=== PATIENT | female | born 1985 | race Caucasian/White ===

== ENCOUNTER 2016-10-24 17:02 | Emergency (ER) | payer MEDICAID ==
[~2016-10-24] VITALS: Ht 162.6 cm; Wt 76.0 kg
[~2016-10-24 17:02] MED LIST: ALBU8.5H3 INH; FLUO20CA19 PO; HYDR50TA13 PO; METF500T4 PO; OXCA300T PO; OXCA300T3 PO; PARO20TA55 PO; QUET200T4 PO; TRAZ50TA18 PO
[2016-10-24 17:13] VITALS: BP 129/73
== END 2016-10-24 18:26 | disposition home or self-care (01) ==
LOC: ED 18:10
DX: S83.412A Sprain of medial collateral ligament of left knee, initial encounter (principal); S83.422A Sprain of lateral collateral ligament of left knee, initial encounter; E11.9 Type 2 diabetes mellitus without complications; X58.XXXA Exposure to other specified factors, initial encounter; Y93.89 Activity, other specified; Y92.89 Other specified places as the place of occurrence of the external cause; Y99.9 Unspecified external cause status
CPT/HCPCS: 99284

== ENCOUNTER 2016-12-14 19:50 | Emergency (ER) | payer MEDICAID ==
[~2016-12-14] VITALS: Ht 162.6 cm; Wt 76.0 kg
[2016-12-14] MEDS ORDERED: QUET100T4 PO (20:31)
[2016-12-14 21:10] VITALS: BP 106/81
== END 2016-12-14 21:12 | disposition home or self-care (01) ==
LOC: ED 20:38
DX: S63.641A Sprain of metacarpophalangeal joint of right thumb, initial encounter (principal); Z88.8 Allergy status to other drugs, medicaments and biological substances; X50.9XXA Other and unspecified overexertion or strenuous movements or postures, initial encounter; Y93.89 Activity, other specified; Y92.328 Other athletic field as the place of occurrence of the external cause; Y99.8 Other external cause status
CPT/HCPCS: 99284

== ENCOUNTER 2016-12-24 14:54 | Emergency (ER) | payer MEDICAID ==
[~2016-12-24] VITALS: Ht 160 cm; Wt 76.8 kg
[~2016-12-24 14:54] MED LIST changes: +QUET100T4 PO
[2016-12-24 14:56] VITALS: BP 114/77
== END 2016-12-24 16:22 | disposition home or self-care (01) ==
LOC: ED 16:16
DX: S63.641A Sprain of metacarpophalangeal joint of right thumb, initial encounter (principal); E11.9 Type 2 diabetes mellitus without complications; J45.909 Unspecified asthma, uncomplicated; F90.9 Attention-deficit hyperactivity disorder, unspecified type; X50.1XXA Overexertion from prolonged static or awkward postures, initial encounter; Y93.89 Activity, other specified; Y92.328 Other athletic field as the place of occurrence of the external cause; Y99.8 Other external cause status
CPT/HCPCS: 29125

== ENCOUNTER 2017-01-09 13:29 | Emergency (ER) | payer MEDICAID ==
[~2017-01-09] VITALS: Ht 160 cm; Wt 77.3 kg
[~2017-01-09 13:29] MED LIST changes: -ALBU8.5H3 INH; +ALBU8.5H8 INH; -PARO20TA55 PO; +PARO20TA98 PO
[2017-01-09 13:36] VITALS: BP 100/68
[2017-01-09] MEDS ORDERED: METHOCARBAMOL 750 MG TABLET PO ONE (14:00)
[2017-01-09] MEDS ORDERED: KETOROLAC 30 MG/1 ML IM ONE (14:00)
[2017-01-09] MEDS ORDERED: KETOROLAC 30 MG/1 ML ONE (14:05)
[2017-01-09] MEDS ORDERED: METHOCARBAMOL 750 MG TABLET ONE (14:05)
== END 2017-01-09 15:00 | disposition home or self-care (01) ==
LOC: ED 14:40
DX: S46.912A Strain of unspecified muscle, fascia and tendon at shoulder and upper arm level, left arm, initial encounter (principal); E11.9 Type 2 diabetes mellitus without complications; J45.909 Unspecified asthma, uncomplicated; F90.9 Attention-deficit hyperactivity disorder, unspecified type; V29.9XXA Motorcycle rider (driver) (passenger) injured in unspecified traffic accident, initial encounter; Y93.89 Activity, other specified; Y92.89 Other specified places as the place of occurrence of the external cause; Y99.8 Other external cause status
CPT/HCPCS: 72050; 73030; 96372; 99284; J1885

== ENCOUNTER → 2017-01-11 | Outpatient (CLI) | payer MEDICAID ==
[~2017-01-11] MED LIST changes: +GADOBUTROL 10 MMOL/10 ML VIAL ONE
== END | disposition home or self-care (01) ==
LOC: CFH 07:38
PROVIDERS: ATTEND Specialist
DX: E23.7 Disorder of pituitary gland, unspecified (principal); J32.1 Chronic frontal sinusitis; E22.1 Hyperprolactinemia
CPT/HCPCS: 70553; A9585

== ENCOUNTER → 2017-03-05 | Outpatient (CLI) | payer MEDICAID | END | disposition home or self-care (01) | LOC: CFH 12:42 | PROVIDERS: ATTEND Nurse Practitioner Family | DX: D35.2 Benign neoplasm of pituitary gland (principal); E22.1 Hyperprolactinemia | CPT/HCPCS: 70553; A9585 ==

== ENCOUNTER 2017-05-23 22:34 | Emergency (ER) | payer MEDICAID ==
[~2017-05-23] VITALS: Ht 162.6 cm; Wt 84.0 kg
[~2017-05-23 22:34] MED LIST changes: -GADOBUTROL 10 MMOL/10 ML VIAL ONE
[2017-05-23 22:47] VITALS: BP 111/79
== END 2017-05-24 01:11 | disposition home or self-care (01) ==
LOC: ED 05-24 00:23
DX: K60.0 Acute anal fissure (principal); E11.9 Type 2 diabetes mellitus without complications; J45.909 Unspecified asthma, uncomplicated
CPT/HCPCS: 74021; 99284

== ENCOUNTER 2017-05-27 15:07 | Emergency (ER) | payer MEDICAID ==
[~2017-05-27] VITALS: Ht 162.6 cm; Wt 84.0 kg
[2017-05-27 15:10] VITALS: BP 113/78
[2017-05-27 15:38] LABS: BASOPHILS % (AUTO) 0 % (0-1); EOSINOPHILS # (AUTO) 0.03 x10^3/uL (0-0.4); EOSINOPHILS % (AUTO) 0 % (1-7); LYMPHOCYTES # (AUTO) 1.39 x10^3/uL (1-3.4); LYMPHOCYTES % (AUTO) 11 % (22-44); MD NO; MEAN CORPUSCULAR HEMOGLOBIN 29.8 pg (27.0-34.8); MEAN CORPUSCULAR HGB CONC 33.2 g/dL (32.4-35.8); MEAN CORPUSCULAR VOLUME 89.6 fL (80-100); MEAN PLATELET VOLUME 8.4 fL (7.4-10.4); MONOCYTES # (AUTO) 0.38 x10^3/uL (0.2-0.8); MONOCYTES % (AUTO) 3 % (2-9); NEUTROPHILS # (AUTO) 10.41 x10^3/uL (1.8-6.8); NEUTROPHILS % (AUTO) 85 % (42-75); PLATELET COUNT 401 x10^3/uL (130-400); RED CELL DISTRIBUTION WIDTH 13.9 % (9.6-15.2)
[2017-05-27 15:45] LABS: ALBUMIN 3.8 g/dL (3.4-5.0); ANION GAP 6 mmol/L (5-15); CALCIUM 8.8 mg/dL (8.5-10.1); CHLORIDE 103 mmol/L (98-107)
[2017-05-27 15:46] LABS: SALICYLATE LEVEL < 1.7 mg/dL (2.8-20.0)
[2017-05-27 15:51] LABS: CREATININE 0.89 mg/dL (0.55-1.02)
[2017-05-27 15:52] LABS: ACETAMINOPHEN < 2 mcg/mL (10-30)
[2017-05-27 16:09] LABS: AMPHETAMINE SCREEN, URINE Negative (Negative); BARBITURATE SCREEN, URINE Negative (Negative); BENZODIAZEPINE SCREEN, URINE Negative (Negative); CANNABINOID SCREEN, URINE Negative (Negative); COCAINE SCREEN, URINE Negative (Negative); METHADONE SCREEN, URINE Negative (Negative); OPIATE SCREEN, URINE Negative (Negative)
== END 2017-05-27 17:37 | disposition home or self-care (01) ==
LOC: ED 17:31
DX: F32.0 Major depressive disorder, single episode, mild (principal); F20.9 Schizophrenia, unspecified; E11.9 Type 2 diabetes mellitus without complications; F90.9 Attention-deficit hyperactivity disorder, unspecified type; Z79.899 Other long term (current) drug therapy
CPT/HCPCS: 36415; 80048; 80307; 80329; 82040; 84703; 85025; 99284; G0479; G0480

== ENCOUNTER 2017-06-27 12:12 | Observation (INO) | payer MEDICAID ==
[~2017-06-27] VITALS: Ht 162.6 cm; Wt 74.0 kg
[2017-06-27 13:02] LABS: BASOPHILS # (AUTO) 0.03 x10^3/uL (0-0.1); BASOPHILS % (AUTO) 1 % (0-1); EOSINOPHILS # (AUTO) 0.08 x10^3/uL (0-0.4); EOSINOPHILS % (AUTO) 1 % (1-7); LYMPHOCYTES # (AUTO) 1.36 x10^3/uL (1-3.4); LYMPHOCYTES % (AUTO) 20 % (22-44); MD NO; MEAN CORPUSCULAR HEMOGLOBIN 29.3 pg (27.0-34.8); MEAN CORPUSCULAR HGB CONC 32.7 g/dL (32.4-35.8); MEAN CORPUSCULAR VOLUME 89.4 fL (80-100); MEAN PLATELET VOLUME 8.2 fL (7.4-10.4); MONOCYTES # (AUTO) 0.65 x10^3/uL (0.2-0.8); MONOCYTES % (AUTO) 9 % (2-9); NEUTROPHILS # (AUTO) 4.78 x10^3/uL (1.8-6.8); NEUTROPHILS % (AUTO) 69 % (42-75); PLATELET COUNT 396 x10^3/uL (130-400); RED BLOOD COUNT 4.05 x10^6/uL (3.82-5.3); RED CELL DISTRIBUTION WIDTH 13.8 % (9.6-15.2)
[2017-06-27 13:16] LABS: ALBUMIN 3.3 g/dL (3.4-5.0); ANION GAP 8 mmol/L (5-15); CALCIUM 8.3 mg/dL (8.5-10.1); CHLORIDE 105 mmol/L (98-107)
[2017-06-27 13:17] LABS: SALICYLATE LEVEL < 1.7 mg/dL (2.8-20.0)
[2017-06-27 13:22] LABS: ALANINE AMINOTRANSFERASE 21 U/L (12-78); ALKALINE PHOSPHATASE 73 U/L (45-117); BILIRUBIN,TOTAL 0.5 mg/dL (0.2-1.0); CREATININE 0.71 mg/dL (0.55-1.02); TOTAL PROTEIN 6.9 g/dL (6.4-8.2)
[2017-06-27 13:23] LABS: AMPHETAMINE SCREEN, URINE Negative (Negative); BARBITURATE SCREEN, URINE Negative (Negative); BENZODIAZEPINE SCREEN, URINE Negative (Negative); CANNABINOID SCREEN, URINE Negative (Negative); COCAINE SCREEN, URINE Negative (Negative); METHADONE SCREEN, URINE Negative (Negative); OPIATE SCREEN, URINE Negative (Negative)
[2017-06-27 13:25] LABS: ACETAMINOPHEN < 2 mcg/mL (10-30)
[2017-06-27] MEDS ORDERED: POTASSIUM CHLORIDE 20 MEQ TAB.ER.PRT ONE (18:19)
[2017-06-27] MEDS ORDERED: POTASSIUM CHLORIDE 20 MEQ TAB.ER.PRT PO ONE (18:30)
[2017-06-27] MEDS ORDERED: ONDANSETRON ODT 4 MG PO PRN (18:30)
[2017-06-27] MEDS ORDERED: ACETAMINOPHEN 325 MG TABLET PO PRN (18:30)
[2017-06-27 19:39] VITALS: BP 109/70
[2017-06-27] MEDS ORDERED: ALBUTEROL SULFATE 2.5 MG/3 ML NPPB PRN (20:00)
[2017-06-27] MEDS: hydrOXyzine 50MG TABLET PO SCH (21:04)
[2017-06-27] MEDS: OXCARBAZEPINE 300MG TABLET PO SCH (21:05)
[2017-06-27] MEDS: QUETIAPINE 100MG TABLET PO SCH (21:05)
[2017-06-28 07:00] VITALS: BP 110/72
[2017-06-28] MEDS: hydrOXyzine 50MG TABLET PO SCH ×2 (09:35→20:36)
[2017-06-28] MEDS: OXCARBAZEPINE 300MG TABLET PO SCH ×3 (09:35→20:36)
[2017-06-28 20:00] VITALS: BP 102/68
[2017-06-28] MEDS: QUETIAPINE 100MG TABLET PO SCH (20:36)
[2017-06-29 07:30] VITALS: BP 114/78
[2017-06-29] MEDS: hydrOXyzine 50MG TABLET PO SCH ×2 (08:36→20:43)
[2017-06-29] MEDS: OXCARBAZEPINE 300MG TABLET PO SCH ×3 (08:36→20:43)
[2017-06-29 20:00] VITALS: BP 105/70
[2017-06-29] MEDS: QUETIAPINE 100MG TABLET PO SCH (20:44)
[2017-06-30 08:17] VITALS: BP 98/60
[2017-06-30] MEDS: hydrOXyzine 50MG TABLET PO SCH ×2 (08:34→20:34)
[2017-06-30] MEDS: OXCARBAZEPINE 300MG TABLET PO SCH ×3 (08:34→20:34)
[2017-06-30 19:49] VITALS: BP 108/72
[2017-06-30] MEDS: QUETIAPINE 100MG TABLET PO SCH (20:34)
[2017-07-01 05:39] LABS: CHLORIDE 103 mmol/L (98-107)
[2017-07-01 05:47] LABS: ALBUMIN 3.3 g/dL (3.4-5.0); ANION GAP 6 mmol/L (5-15); CALCIUM 8.5 mg/dL (8.5-10.1)
[2017-07-01 05:58] LABS: BASOPHILS # (AUTO) 0.04 x10^3/uL (0-0.1); BASOPHILS % (AUTO) 0 % (0-1); EOSINOPHILS # (AUTO) 0.17 x10^3/uL (0-0.4); EOSINOPHILS % (AUTO) 2 % (1-7); LYMPHOCYTES # (AUTO) 2.95 x10^3/uL (1-3.4); LYMPHOCYTES % (AUTO) 33 % (22-44); MD NO; MEAN CORPUSCULAR HEMOGLOBIN 30.3 pg (27.0-34.8); MEAN CORPUSCULAR HGB CONC 33.8 g/dL (32.4-35.8); MEAN CORPUSCULAR VOLUME 89.8 fL (80-100); MEAN PLATELET VOLUME 8.1 fL (7.4-10.4); MONOCYTES # (AUTO) 0.72 x10^3/uL (0.2-0.8); MONOCYTES % (AUTO) 8 % (2-9); NEUTROPHILS % (AUTO) 57 % (42-75); PLATELET COUNT 389 x10^3/uL (130-400); RED BLOOD COUNT 4.54 x10^6/uL (3.82-5.3); RED CELL DISTRIBUTION WIDTH 13.7 % (9.6-15.2)
[2017-07-01 08:09] VITALS: BP 113/74
[2017-07-01] MEDS: OXCARBAZEPINE 300MG TABLET PO SCH ×3 (08:23→21:36)
[2017-07-01] MEDS: hydrOXyzine 50MG TABLET PO SCH ×2 (08:23→21:36)
[2017-07-01 19:56] VITALS: BP 111/79
[2017-07-01] MEDS: QUETIAPINE 100MG TABLET PO SCH (21:36)
[2017-07-02 07:19] VITALS: BP 96/63
[2017-07-02] MEDS: OXCARBAZEPINE 300MG TABLET PO SCH ×3 (08:20→21:11)
[2017-07-02] MEDS: hydrOXyzine 50MG TABLET PO SCH ×2 (08:20→21:11)
[2017-07-02 19:52] VITALS: BP 108/65
[2017-07-02] MEDS: QUETIAPINE 100MG TABLET PO SCH (21:11)
[2017-07-03 08:19] VITALS: BP 100/66
[2017-07-03] MEDS: OXCARBAZEPINE 300MG TABLET PO SCH ×3 (09:04→21:23)
[2017-07-03] MEDS: hydrOXyzine 50MG TABLET PO SCH ×2 (09:04→21:23)
[2017-07-03 19:36] VITALS: BP 108/69
[2017-07-03] MEDS: QUETIAPINE 100MG TABLET PO SCH (21:23)
[2017-07-04 07:25] VITALS: BP 95/57
[2017-07-04] MEDS: hydrOXyzine 50MG TABLET PO SCH ×2 (08:43→20:27)
[2017-07-04] MEDS: OXCARBAZEPINE 300MG TABLET PO SCH ×3 (08:43→20:27)
[2017-07-04 19:40] VITALS: BP 112/80
[2017-07-04] MEDS: QUETIAPINE 100MG TABLET PO SCH (20:28)
[2017-07-05 07:59] VITALS: BP 101/67
[2017-07-05] MEDS: OXCARBAZEPINE 300MG TABLET PO SCH ×3 (09:57→20:18)
[2017-07-05] MEDS: hydrOXyzine 50MG TABLET PO SCH ×2 (09:57→20:18)
[2017-07-05 19:37] VITALS: BP 113/64
[2017-07-05] MEDS: QUETIAPINE 100MG TABLET PO SCH (20:18)
[2017-07-06 07:30] VITALS: BP 112/70
[2017-07-06] MEDS: OXCARBAZEPINE 300MG TABLET PO SCH ×3 (09:12→20:57)
[2017-07-06] MEDS: hydrOXyzine 50MG TABLET PO SCH ×2 (09:12→20:57)
[2017-07-06 20:00] VITALS: BP 113/74
[2017-07-06] MEDS: QUETIAPINE 100MG TABLET PO SCH (20:57)
[2017-07-07 07:30] VITALS: BP 108/74
[2017-07-07] MEDS: OXCARBAZEPINE 300MG TABLET PO SCH ×4 (09:06→20:44)
[2017-07-07] MEDS: hydrOXyzine 50MG TABLET PO SCH ×3 (09:06→20:44)
[2017-07-07 20:13] VITALS: BP 108/65
[2017-07-07] MEDS: QUETIAPINE 100MG TABLET PO SCH ×2 (20:28→20:44)
[2017-07-08 08:24] VITALS: BP 108/71
[2017-07-08] MEDS: OXCARBAZEPINE 300MG TABLET PO SCH ×3 (09:05→20:27)
[2017-07-08] MEDS: hydrOXyzine 50MG TABLET PO SCH ×2 (09:05→20:27)
[2017-07-08 19:36] VITALS: BP 99/63
[2017-07-08] MEDS: QUETIAPINE 100MG TABLET PO SCH (20:27)
[2017-07-09 07:45] VITALS: BP 103/55
[2017-07-09] MEDS: hydrOXyzine 50MG TABLET PO SCH ×2 (08:36→20:31)
[2017-07-09] MEDS: OXCARBAZEPINE 300MG TABLET PO SCH ×3 (08:36→20:31)
[2017-07-09 19:56] VITALS: BP 107/63
[2017-07-09] MEDS: QUETIAPINE 100MG TABLET PO SCH (20:31)
[2017-07-10] MEDS: OXCARBAZEPINE 300MG TABLET PO SCH ×3 (08:12→21:45)
[2017-07-10] MEDS: hydrOXyzine 50MG TABLET PO SCH ×2 (08:12→21:45)
[2017-07-10 08:34] VITALS: BP 105/64
[2017-07-10 19:59] VITALS: BP 113/70
[2017-07-10] MEDS: QUETIAPINE 100MG TABLET PO SCH (21:45)
[2017-07-11] MEDS: OXCARBAZEPINE 300MG TABLET PO SCH (08:12)
[2017-07-11] MEDS: hydrOXyzine 50MG TABLET PO SCH (08:13)
[2017-07-11 09:47] VITALS: BP 104/73
== END 2017-07-11 15:02 | disposition home or self-care (01) ==
LOC: ED 13:17 → EDIP 17:55 → 2N 19:36
PROVIDERS: ADMIT Hospitalist; ATTEND Hospitalist
DX: R45.851 Suicidal ideations (principal); R45.850 Homicidal ideations; J45.909 Unspecified asthma, uncomplicated; E87.6 Hypokalemia; E44.1 Mild protein-calorie malnutrition; E11.9 Type 2 diabetes mellitus without complications; F20.0 Paranoid schizophrenia; F33.2 Major depressive disorder, recurrent severe without psychotic features; F31.9 Bipolar disorder, unspecified; Z91.5 Personal history of self-harm; F90.9 Attention-deficit hyperactivity disorder, unspecified type
CPT/HCPCS: 36415; 80048; 80053; 80307; 80329; 82040; 82140; 84703; 85025; 99285; G0378; G0480

== ENCOUNTER 2017-07-14 16:30 | Emergency (ER) | payer MEDICAID ==
[~2017-07-14] VITALS: Ht 162.6 cm; Wt 76.6 kg
[2017-07-14 16:31] VITALS: BP 132/80
[2017-07-14] MEDS ORDERED: DIPH,PERTUSS(ACELL),TET VAC/PF 0.5 ML IM-VACC ONE ×2 (17:29→17:30)
[2017-07-14] MEDS ORDERED: LIDOCAINE-MPF 1%, 2ML ONE (17:29)
[2017-07-14] MEDS ORDERED: LIDOCAINE-MPF 1%, 5ML INFIL ONE (17:30)
== END 2017-07-14 18:07 | disposition home or self-care (01) ==
LOC: ED 18:01
DX: S61.512A Laceration without foreign body of left wrist, initial encounter (principal); F20.9 Schizophrenia, unspecified; E11.9 Type 2 diabetes mellitus without complications; F31.9 Bipolar disorder, unspecified; J45.909 Unspecified asthma, uncomplicated; W26.0XXA Contact with knife, initial encounter; Y93.89 Activity, other specified; Y92.098 Other place in other non-institutional residence as the place of occurrence of the external cause; Y99.8 Other external cause status
CPT/HCPCS: 12002; 82962; 90715; 96372

== ENCOUNTER 2017-07-16 08:27 | Emergency (ER) | payer MEDICAID ==
[~2017-07-16] VITALS: Ht 162.6 cm; Wt 77.9 kg
[2017-07-16 11:07] VITALS: BP 114/75
== END 2017-07-16 11:11 | disposition home or self-care (01) ==
LOC: ED 10:01
DX: Z48.01 Encounter for change or removal of surgical wound dressing (principal); J45.909 Unspecified asthma, uncomplicated
CPT/HCPCS: 99282

== ENCOUNTER 2017-07-29 22:29 | Inpatient (IN) | payer MEDICAID ==
[~2017-07-29] VITALS: Ht 160 cm; Wt 79.9 kg
[2017-07-30] MEDS ORDERED: SODIUM CHLORIDE FLUSH 10ML SYR IVF ONE (02:00)
[2017-07-30] MEDS ORDERED: ONDANSETRON 2MG/ML, 2ML IVPush ONE (02:00)
[2017-07-30] MEDS ORDERED: FAMOTIDINE 20 MG/2 ML IVP ONE (02:00)
[2017-07-30] MEDS ORDERED: MAALOX/HYOSCYAMINE/LIDOCAINE 45 ML BTL PO ONE (02:00)
[2017-07-30] MEDS ORDERED: SODIUM CHLORIDE 0.9% 1,000ML IVBOLUS ONE (02:00)
[2017-07-30] MEDS ORDERED: ONDANSETRON ODT 4 MG PO ONE (02:00)
[2017-07-30] MEDS ORDERED: ONDANSETRON ODT 4 MG ONE (02:08)
[2017-07-30] MEDS ORDERED: MAALOX/HYOSCYAMINE/LIDOCAINE 45 ML BTL ONE (02:08)
[2017-07-30 02:29] LABS: BASOPHILS # (AUTO) 0.11 x10^3/uL (0-0.1); BASOPHILS % (AUTO) 1 % (0-1); EOSINOPHILS # (AUTO) 0.18 x10^3/uL (0-0.4); EOSINOPHILS % (AUTO) 2 % (1-7); LYMPHOCYTES # (AUTO) 2.78 x10^3/uL (1-3.4); LYMPHOCYTES % (AUTO) 27 % (22-44); MD NO; MEAN CORPUSCULAR HGB CONC 33.6 g/dL (32.4-35.8); MEAN CORPUSCULAR VOLUME 89.1 fL (80-100); MONOCYTES # (AUTO) 1.06 x10^3/uL (0.2-0.8); MONOCYTES % (AUTO) 10 % (2-9); NEUTROPHILS # (AUTO) 6.19 x10^3/uL (1.8-6.8); NEUTROPHILS % (AUTO) 60 % (42-75); PLATELET COUNT 435 x10^3/uL (130-400); RED BLOOD COUNT 4.31 x10^6/uL (3.82-5.3); RED CELL DISTRIBUTION WIDTH 13.7 % (9.6-15.2)
[2017-07-30 02:40] LABS: ALANINE AMINOTRANSFERASE 21 U/L (12-78); ALBUMIN 3.3 g/dL (3.4-5.0); ANION GAP 4 mmol/L (5-15); CALCIUM 8.5 mg/dL (8.5-10.1); CHLORIDE 102 mmol/L (98-107); CREATININE 0.89 mg/dL (0.55-1.02)
[2017-07-30 02:43] LABS: ALKALINE PHOSPHATASE 87 U/L (45-117); BILIRUBIN,TOTAL 0.1 mg/dL (0.2-1.0); TOTAL PROTEIN 7.4 g/dL (6.4-8.2); TROPONIN I < 0.015 ng/mL (0.000-0.045)
[2017-07-30] MEDS ORDERED: CEFOTETAN PMX 1GM/50ML 50 ML ONE (03:26)
[2017-07-30] MEDS ORDERED: CEFOTETAN PMX 1GM/50ML 50 ML IV ONE (03:30)
[2017-07-30] MEDS ORDERED: SODIUM CHLORIDE 0.9% 1,000 ML IV ONE (03:30)
[2017-07-30 04:04] LABS: CULTURE INDICATED? NO; MICROSCOPIC AUTO
[2017-07-30] MEDS ORDERED: MORPHINE SULFATE 4 MG/ML, 1ML ONE (04:57)
[2017-07-30] MEDS ORDERED: hydrALAzine 20 MG/ML, 1ML IVPush PRN (05:00)
[2017-07-30] MEDS ORDERED: ONDANSETRON 2MG/ML, 2ML IVPush PRN ×3 (05:00→18:30)
[2017-07-30] MEDS: LACTATED RINGERS 1,000 ML IV SCH ×2 (05:37→14:15)
[2017-07-30 07:20] VITALS: BP 97/57
[2017-07-30] MEDS: hydrOXyzine 50MG TABLET PO SCH ×2 (08:20→19:55)
[2017-07-30] MEDS: morphine SULFATE 10 MG/ML, 1ML IVPush PRN (08:39)
[2017-07-30 12:25] VITALS: BP 114/73
[2017-07-30] MEDS ORDERED: FENTANYL PF 250 MCG/5ML ONE (15:18)
[2017-07-30] MEDS ORDERED: MIDAZOLAM 1 MG/ML, 2ML ONE (15:18)
[2017-07-30] MEDS ORDERED: BUPIVACAINE/PF 0.5% ONE (15:19)
[2017-07-30] MEDS ORDERED: EPINEPHRINE 1 MG/ML, 1ML ONE (15:19)
[2017-07-30] MEDS ORDERED: CEFAZOLIN 1,000 MG ONE (15:39)
[2017-07-30] MEDS ORDERED: SUCCINYLCHOLINE 20 MG/ML, 10ML ONE (15:39)
[2017-07-30] MEDS ORDERED: ROCURONIUM 10 MG/ML,10ML ONE (15:39)
[2017-07-30] MEDS ORDERED: NEOSTIGMINE 1 MG/ML, 10ML ONE (15:39)
[2017-07-30] MEDS ORDERED: ONDANSETRON 2MG/ML, 2ML ONE (15:39)
[2017-07-30] MEDS ORDERED: PROPOFOL 10 MG/ML, 20ML ONE (15:39)
[2017-07-30] MEDS ORDERED: GLYCOPYRROLATE 0.2MG/1ML, 5ML ONE (15:39)
[2017-07-30] MEDS: OXCARBAZEPINE 300MG TABLET PO SCH ×2 (16:00→19:55)
[2017-07-30] MEDS ORDERED: ACETAMINOPHEN 650 MG/20.3 ML UDC ONE (16:55)
[2017-07-30] MEDS ORDERED: OXYcodone 5 MG/5 ML ORAL.SOL UDC ONE (16:56)
[2017-07-30] MEDS ORDERED: HYDROmorphone 1 MG/ML, 1ML IV PRN (17:00)
[2017-07-30] MEDS ORDERED: OXYcodone 5 MG/5 ML ORAL.SOL UDC PO PRN (17:00)
[2017-07-30] MEDS ORDERED: FENTANYL PF 100 MCG/2ML IV PRN (17:00)
[2017-07-30] MEDS ORDERED: METOCLOPRAMIDE 5 MG/ML, 2ML IV PRN (17:00)
[2017-07-30] MEDS ORDERED: ACETAMINOPHEN 325 MG TABLET PO PRN (17:00)
[2017-07-30] MEDS ORDERED: LABETALOL 5MG/ML, 20ML IV PRN (17:00)
[2017-07-30] MEDS ORDERED: hydrALAzine 20 MG/ML, 1ML IV PRN (17:00)
[2017-07-30] MEDS ORDERED: MORPHINE SULFATE 4 MG/ML, 1ML IVPush PRN (18:30)
[2017-07-30] MEDS ORDERED: LACTATED RINGERS 1,000 ML IV SCH (18:30)
[2017-07-30 19:33] VITALS: BP 102/53
[2017-07-30] MEDS: QUETIAPINE 100MG TABLET PO SCH (19:55)
[2017-07-31] MEDS: morphine SULFATE 10 MG/ML, 1ML IVPush PRN (01:09)
[2017-07-31 01:47] VITALS: BP 105/58
[2017-07-31 04:36] LABS: BASOPHILS # (AUTO) 0.07 x10^3/uL (0-0.1); BASOPHILS % (AUTO) 1 % (0-1); EOSINOPHILS % (AUTO) 1 % (1-7); LYMPHOCYTES # (AUTO) 2.01 x10^3/uL (1-3.4); LYMPHOCYTES % (AUTO) 20 % (22-44); MD NO; MEAN CORPUSCULAR HEMOGLOBIN 29.8 pg (27.0-34.8); MEAN CORPUSCULAR HGB CONC 33.6 g/dL (32.4-35.8); MEAN CORPUSCULAR VOLUME 88.6 fL (80-100); MEAN PLATELET VOLUME 7.9 fL (7.4-10.4); MONOCYTES # (AUTO) 0.79 x10^3/uL (0.2-0.8); MONOCYTES % (AUTO) 8 % (2-9); NEUTROPHILS # (AUTO) 6.92 x10^3/uL (1.8-6.8); NEUTROPHILS % (AUTO) 70 % (42-75); PLATELET COUNT 348 x10^3/uL (130-400); RED BLOOD COUNT 3.84 x10^6/uL (3.82-5.3); RED CELL DISTRIBUTION WIDTH 13.3 % (9.6-15.2)
[2017-07-31 04:47] LABS: CHLORIDE 104 mmol/L (98-107)
[2017-07-31 04:55] LABS: ALANINE AMINOTRANSFERASE 36 U/L (12-78); ALBUMIN 2.7 g/dL (3.4-5.0); ALKALINE PHOSPHATASE 72 U/L (45-117); ANION GAP 4 mmol/L (5-15); BILIRUBIN,TOTAL 0.7 mg/dL (0.2-1.0); CALCIUM 8.1 mg/dL (8.5-10.1); TOTAL PROTEIN 6.1 g/dL (6.4-8.2)
[2017-07-31 06:55] VITALS: BP 93/58
[2017-07-31] MEDS: OXCARBAZEPINE 300MG TABLET PO SCH ×3 (08:01→19:26)
[2017-07-31] MEDS: OXYcodone/APAP 5/325MG TABLET PO PRN ×2 (08:01→19:26)
[2017-07-31] MEDS: hydrOXyzine 50MG TABLET PO SCH ×2 (08:01→19:26)
[2017-07-31 12:48] VITALS: BP 105/65
[2017-07-31 19:22] VITALS: BP 109/69
[2017-07-31] MEDS: QUETIAPINE 100MG TABLET PO SCH (19:26)
[2017-08-01 01:18] VITALS: BP 97/62
[2017-08-01] MEDS: OXYcodone/APAP 5/325MG TABLET PO PRN (05:34)
[2017-08-01 07:05] VITALS: BP 100/64
[2017-08-01] MEDS: OXCARBAZEPINE 300MG TABLET PO SCH (08:06)
[2017-08-01] MEDS: hydrOXyzine 50MG TABLET PO SCH (08:06)
[2017-08-01] MEDS ORDERED: HYDR-3240 PO (10:20)
== END 2017-08-01 10:28 | disposition home or self-care (01) | DRG 446 ==
LOC: ED 07-30 01:34 → SUATTDRO 07-30 04:51 → EDIP 07-30 05:02 → 3NE 07-30 05:25 → DCLOUNGE 08-01 10:17
PROVIDERS: ADMIT Hospitalist; ATTEND Hospitalist
DX: K80.00 Calculus of gallbladder with acute cholecystitis without obstruction (principal); F20.9 Schizophrenia, unspecified; E66.9 Obesity, unspecified; F31.9 Bipolar disorder, unspecified; E11.9 Type 2 diabetes mellitus without complications; F41.0 Panic disorder [episodic paroxysmal anxiety]; F41.1 Generalized anxiety disorder; F90.9 Attention-deficit hyperactivity disorder, unspecified type; J45.909 Unspecified asthma, uncomplicated; Z88.8 Allergy status to other drugs, medicaments and biological substances; Z87.440 Personal history of urinary (tract) infections; Z79.899 Other long term (current) drug therapy; Z79.1 Long term (current) use of non-steroidal anti-inflammatories (NSAID)
CPT/HCPCS: 36415; 71046; 76700; 80053; 81001; 83690; 83735; 84100; 84484; 84703; 85025; 88304; 93005; 96365; J0171; J0690; J2250; J2405; J2704; J2710; J3010; J3490; Q0162; J0330; J2270; J7030; J7120; S0074

== ENCOUNTER 2017-08-31 21:19 | Emergency (ER) | payer MEDICAID ==
[~2017-08-31] VITALS: Ht 160 cm; Wt 76.3 kg
[~2017-08-31 21:19] MED LIST changes: +HYDR-3240 PO
[2017-08-31 21:21] VITALS: BP 124/82
== END 2017-08-31 22:17 ==
LOC: ED 21:35
DX: J20.8 Acute bronchitis due to other specified organisms (principal); B97.89 Other viral agents as the cause of diseases classified elsewhere; J45.909 Unspecified asthma, uncomplicated; M19.90 Unspecified osteoarthritis, unspecified site; F20.9 Schizophrenia, unspecified; E11.9 Type 2 diabetes mellitus without complications; F31.9 Bipolar disorder, unspecified; F90.9 Attention-deficit hyperactivity disorder, unspecified type; Z76.0 Encounter for issue of repeat prescription
CPT/HCPCS: 71046; 82962; 99284

== ENCOUNTER 2017-12-01 00:24 | Emergency (ER) | payer MEDICAID ==
[~2017-12-01] VITALS: Ht 160 cm; Wt 78.0 kg
[~2017-12-01 00:24] MED LIST changes: -METF500T4 PO; +METF500T5 PO
[2017-12-01 00:25] VITALS: BP 103/64
[2017-12-01] MEDS ORDERED: LIDOCAINE-MPF 1%, 2ML ONE ×2 (00:43→00:58)
[2017-12-01] MEDS ORDERED: DIPH,PERTUSS(ACELL),TET VAC/PF 0.5 ML IM-VACC ONE ×2 (01:17→01:30)
[2017-12-01] MEDS ORDERED: LIDOCAINE 1%, 10ML INFIL ONE (01:30)
[2017-12-01] MEDS ORDERED: BACITRACIN ZINC OINT 500U/GM, 0.9 GM ONE (02:01)
== END 2017-12-01 02:21 | disposition home or self-care (01) ==
LOC: ED 00:48
DX: S61.012A Laceration without foreign body of left thumb without damage to nail, initial encounter (principal); E11.9 Type 2 diabetes mellitus without complications; J45.909 Unspecified asthma, uncomplicated; F41.9 Anxiety disorder, unspecified; F31.9 Bipolar disorder, unspecified; F20.9 Schizophrenia, unspecified; F90.9 Attention-deficit hyperactivity disorder, unspecified type; W26.0XXA Contact with knife, initial encounter; Y93.89 Activity, other specified; Y92.89 Other specified places as the place of occurrence of the external cause; Y99.8 Other external cause status
CPT/HCPCS: 12031; 90471; 90715; 99284

== ENCOUNTER 2017-12-05 19:13 | Emergency (ER) | payer MEDICAID ==
[~2017-12-05] VITALS: Ht 160 cm; Wt 76.2 kg
[2017-12-05 19:23] VITALS: BP 119/78
== END 2017-12-05 20:03 | disposition home or self-care (01) ==
LOC: ED 19:46
DX: L03.114 Cellulitis of left upper limb (principal); I10 Essential (primary) hypertension; E11.9 Type 2 diabetes mellitus without complications; J45.909 Unspecified asthma, uncomplicated
CPT/HCPCS: 99283

== ENCOUNTER 2017-12-10 20:56 | Emergency (ER) | payer MEDICAID ==
[~2017-12-10] VITALS: Ht 160 cm; Wt 77.6 kg
[2017-12-10 20:59] VITALS: BP 114/73
== END 2017-12-10 21:08 | disposition home or self-care (01) ==
LOC: ED 21:00
DX: S61.012D Laceration without foreign body of left thumb without damage to nail, subsequent encounter (principal); Z48.02 Encounter for removal of sutures; I10 Essential (primary) hypertension; E11.9 Type 2 diabetes mellitus without complications; F32.9 Major depressive disorder, single episode, unspecified
CPT/HCPCS: 99281

== ENCOUNTER 2018-01-31 02:05 | Emergency (ER) | payer MEDICAID ==
[~2018-01-31] VITALS: Ht 160 cm; Wt 83.5 kg
[~2018-01-31 02:05] MED LIST changes: +METF500T17 PO; -METF500T5 PO; -OXCA300T PO; +OXCA300T19 PO; +TRAZ-136 PO; -TRAZ50TA18 PO
[2018-01-31 02:06] VITALS: BP 118/76
[2018-01-31 03:32] LABS: BASOPHILS # (AUTO) 0.01 x10^3/uL (0-0.1); BASOPHILS % (AUTO) 0 % (0-1); EOSINOPHILS # (AUTO) 0.03 x10^3/uL (0-0.4); EOSINOPHILS % (AUTO) 0 % (1-7); LYMPHOCYTES # (AUTO) 0.54 x10^3/uL (1-3.4); LYMPHOCYTES % (AUTO) 5 % (22-44); MD NO; MEAN CORPUSCULAR HEMOGLOBIN 30.5 pg (27.0-34.8); MEAN CORPUSCULAR HGB CONC 34.6 g/dL (32.4-35.8); MEAN CORPUSCULAR VOLUME 88.3 fL (80-100); MEAN PLATELET VOLUME 8.2 fL (7.4-10.4); MONOCYTES # (AUTO) 0.34 x10^3/uL (0.2-0.8); MONOCYTES % (AUTO) 3 % (2-9); NEUTROPHILS # (AUTO) 10.56 x10^3/uL (1.8-6.8); NEUTROPHILS % (AUTO) 92 % (42-75); PLATELET COUNT 367 x10^3/uL (130-400); RED BLOOD COUNT 4.61 x10^6/uL (3.82-5.3); RED CELL DISTRIBUTION WIDTH 13.9 % (9.6-15.2)
[2018-01-31 03:44] LABS: ALBUMIN 3.4 g/dL (3.4-5.0); ANION GAP 3 mmol/L (5-15); CALCIUM 8.4 mg/dL (8.5-10.1); CHLORIDE 102 mmol/L (98-107)
[2018-01-31 03:50] LABS: ALANINE AMINOTRANSFERASE 30 U/L (12-78); ALKALINE PHOSPHATASE 109 U/L (45-117); BILIRUBIN,TOTAL 0.7 mg/dL (0.2-1.0); CREATININE 0.89 mg/dL (0.55-1.02); TROPONIN I < 0.015 ng/mL (0.000-0.045)
[2018-01-31 05:26] LABS: MICROSCOPIC AUTO
[2018-01-31 05:36] LABS: CULTURE INDICATED? YES
== END 2018-01-31 05:13 | disposition home or self-care (01) ==
LOC: ED 04:51
DX: R07.89 Other chest pain (principal); R10.13 Epigastric pain; I10 Essential (primary) hypertension; E11.9 Type 2 diabetes mellitus without complications; J45.909 Unspecified asthma, uncomplicated
CPT/HCPCS: 36415; 71045; 80053; 81001; 83690; 84484; 84703; 85025; 87086; 93005; 99285

== ENCOUNTER 2018-03-23 02:55 | Emergency (ER) | payer MEDICAID ==
[~2018-03-23] VITALS: Ht 162.6 cm; Wt 89.5 kg
[2018-03-23 02:59] VITALS: BP 102/65
== END 2018-03-23 04:22 | disposition home or self-care (01) ==
LOC: ED 03:33
DX: J02.8 Acute pharyngitis due to other specified organisms (principal); B97.89 Other viral agents as the cause of diseases classified elsewhere; I10 Essential (primary) hypertension; F20.9 Schizophrenia, unspecified; E11.9 Type 2 diabetes mellitus without complications; J45.909 Unspecified asthma, uncomplicated; F41.1 Generalized anxiety disorder; F31.9 Bipolar disorder, unspecified; Z88.8 Allergy status to other drugs, medicaments and biological substances
CPT/HCPCS: 87081; 87147; 87880; 99284

== ENCOUNTER 2018-04-15 23:51 | Emergency (ER) | payer MEDICAID ==
[~2018-04-15] VITALS: Ht 160 cm; Wt 89.3 kg
[2018-04-16 00:33] LABS: BASOPHILS % (AUTO) 1 % (0-1); EOSINOPHILS # (AUTO) 0.23 x10^3/uL (0-0.4); EOSINOPHILS % (AUTO) 2 % (1-7); LYMPHOCYTES # (AUTO) 2.99 x10^3/uL (1-3.4); LYMPHOCYTES % (AUTO) 30 % (22-44); MD NO; MEAN CORPUSCULAR HGB CONC 32.9 g/dL (32.4-35.8); MEAN PLATELET VOLUME 7.9 fL (7.4-10.4); MONOCYTES # (AUTO) 0.86 x10^3/uL (0.2-0.8); MONOCYTES % (AUTO) 9 % (2-9); NEUTROPHILS # (AUTO) 5.83 x10^3/uL (1.8-6.8); NEUTROPHILS % (AUTO) 58 % (42-75); PLATELET COUNT 445 x10^3/uL (130-400); RED BLOOD COUNT 4.35 x10^6/uL (3.82-5.3); RED CELL DISTRIBUTION WIDTH 13.1 % (9.6-15.2)
[2018-04-16 00:33] LABS: HCG UR SG 1.022 (1.003-1.030); MICROSCOPIC AUTO
[2018-04-16 00:37] LABS: CULTURE INDICATED? NO
[2018-04-16 00:43] LABS: ALANINE AMINOTRANSFERASE 26 U/L (12-78); ALBUMIN 3.3 g/dL (3.4-5.0); ANION GAP 9 mmol/L (5-15); CALCIUM 8.9 mg/dL (8.5-10.1); CHLORIDE 103 mmol/L (98-107)
[2018-04-16 00:45] LABS: ALKALINE PHOSPHATASE 101 U/L (45-117); BILIRUBIN,TOTAL 0.1 mg/dL (0.2-1.0); TOTAL PROTEIN 7.9 g/dL (6.4-8.2)
[2018-04-16] MEDS ORDERED: ONDANSETRON ODT 4 MG ONE (00:50)
[2018-04-16 01:00] VITALS: BP 118/72
[2018-04-16] MEDS ORDERED: ONDANSETRON ODT 4 MG PO ONE (01:00)
== END 2018-04-16 01:19 | disposition home or self-care (01) ==
LOC: ED 23:59
DX: A09 Infectious gastroenteritis and colitis, unspecified (principal); I10 Essential (primary) hypertension; E11.9 Type 2 diabetes mellitus without complications; F20.9 Schizophrenia, unspecified; J45.909 Unspecified asthma, uncomplicated; F41.1 Generalized anxiety disorder; F31.9 Bipolar disorder, unspecified; Z90.49 Acquired absence of other specified parts of digestive tract; Z88.8 Allergy status to other drugs, medicaments and biological substances; Z88.6 Allergy status to analgesic agent
CPT/HCPCS: 36415; 71045; 80053; 81001; 81025; 83690; 85025; 93005; 99284; Q0162

== ENCOUNTER 2018-05-05 16:20 | Emergency (ER) | payer MEDICAID ==
[~2018-05-05] VITALS: Ht 160 cm; Wt 89.0 kg
[~2018-05-05 16:20] MED LIST changes: -TRAZ-136 PO; +TRAZ50TA66 PO
[2018-05-05 17:27] LABS: BASOPHILS # (AUTO) 0.03 x10^3/uL (0-0.1); BASOPHILS % (AUTO) 0 % (0-1); EOSINOPHILS # (AUTO) 0.11 x10^3/uL (0-0.4); EOSINOPHILS % (AUTO) 2 % (1-7); LYMPHOCYTES # (AUTO) 1.81 x10^3/uL (1-3.4); LYMPHOCYTES % (AUTO) 27 % (22-44); MD NO; MEAN CORPUSCULAR HEMOGLOBIN 29.5 pg (27.0-34.8); MEAN CORPUSCULAR HGB CONC 33.9 g/dL (32.4-35.8); MEAN CORPUSCULAR VOLUME 87.1 fL (80-100); MEAN PLATELET VOLUME 8.1 fL (7.4-10.4); MONOCYTES % (AUTO) 8 % (2-9); NEUTROPHILS # (AUTO) 4.29 x10^3/uL (1.8-6.8); NEUTROPHILS % (AUTO) 64 % (42-75); PLATELET COUNT 455 x10^3/uL (130-400); RED BLOOD COUNT 4.57 x10^6/uL (3.82-5.3); RED CELL DISTRIBUTION WIDTH 13.5 % (9.6-15.2)
[2018-05-05 17:38] LABS: ALANINE AMINOTRANSFERASE 42 U/L (12-78); ALBUMIN 3.5 g/dL (3.4-5.0); ANION GAP 5 mmol/L (5-15); CALCIUM 8.7 mg/dL (8.5-10.1); CHLORIDE 102 mmol/L (98-107); CREATININE 0.77 mg/dL (0.55-1.02)
[2018-05-05 17:42] LABS: ALKALINE PHOSPHATASE 106 U/L (45-117); BILIRUBIN,TOTAL 0.2 mg/dL (0.2-1.0); TOTAL PROTEIN 8.2 g/dL (6.4-8.2)
[2018-05-05 21:39] VITALS: BP 110/68
== END 2018-05-05 21:53 | disposition home or self-care (01) ==
LOC: ED 20:27
DX: R51 Headache (principal); R42 Dizziness and giddiness; Z91.19 Patient's noncompliance with other medical treatment and regimen; I10 Essential (primary) hypertension
CPT/HCPCS: 36415; 70450; 80053; 84703; 85025; 93005; 99284

== ENCOUNTER 2020-12-01 18:07 | Emergency (ER) | payer MEDICAID ==
[~2020-12-01] VITALS: Ht 160 cm; Wt 106.7 kg
[~2020-12-01 18:07] MED LIST changes: +HYDR-2214 PO; -HYDR-3240 PO; -HYDR50TA13 PO; +HYDR50TA99 PO
--- NOTE | 2020-12-01 18:41 | NUR ---
PT AMBULATORY TO ROOM FROM TRIAGE, CHANGED INTO GOWN, MONITORS IN PLACE. PT C/O CP STARTING 2 DAYS AGO, EPIGASTRIC/STERNUM AREA THAT COMES AND GOES, DENIES RADIATING PAIN. PT STATES SHE HAS BEEN SOB FOR 2 DAYS. HX OF ASTHMA
--- NOTE | 2020-12-01 18:42 | NUR ---
bedside report from jewels RN. pt care transferred at this time. Patient is resting comfortably in bed. Bed in lowest, rails engaged, call light on lap. Vital Signs within normal limits. WCTM.
[2020-12-01 19:33] VITALS: BP 122/70
--- NOTE | 2020-12-01 19:34 | NUR ---
Patient/Spouse given discharge instructions and they have confirmed that they understand the instructions. Patient ambulatory with steady gait. NAD, all questions answered appropriately, denies additional needs at this time. No personal belongings left in room after discharge.
== END 2020-12-01 19:37 | disposition home or self-care (01) ==
LOC: MERGE 18:07 → ED 19:00
DX: J45.31 Mild persistent asthma with (acute) exacerbation (principal); R07.89 Other chest pain; R06.02 Shortness of breath; R94.31 Abnormal electrocardiogram [ECG] [EKG]; I10 Essential (primary) hypertension; E11.9 Type 2 diabetes mellitus without complications; Z90.49 Acquired absence of other specified parts of digestive tract; F17.200 Nicotine dependence, unspecified, uncomplicated
CPT/HCPCS: 93005; 99283